=== PATIENT | male | born 1995 | race Native Hawaiian/Other Pacific Islander ===

== ENCOUNTER 2021-02-28 03:32 | Emergency (ER) | payer OTHER ==
[~2021-02-28] VITALS: Ht 175.3 cm; Wt 114.8 kg
[~2021-02-28 03:32] MED LIST: CLONIDINE0.2 MG PO; DIVA250T2 PO; LATUDA20 MG OR
[2021-02-28 06:02] VITALS: BP 160/83; TEMP 97.8
== END 2021-02-28 06:02 | disposition home or self-care (01) ==
LOC: ED 03:32
DX: J06.9 Acute upper respiratory infection, unspecified (principal); J04.0 Acute laryngitis; Z20.822 Contact with and (suspected) exposure to COVID-19
CPT/HCPCS: 87502; 87635; 99283; U0003

== ENCOUNTER 2022-10-01 12:37 | Emergency (ER) | payer OTHER ==
[~2022-10-01] VITALS: Ht 175.3 cm; Wt 113.4 kg
[2022-10-01 12:41] VITALS: TEMP 97.2
[2022-10-01 12:59] LABS: PLATELET COUNT 323 K/uL (142-355)
[2022-10-01 13:15] LABS: PARTIAL THROMBOPLASTIN TIME 28.3 SECONDS (23.9-36.7)
[2022-10-01 13:19] LABS: POTASSIUM 4.1 mmol/L (3.6-5.2)
[2022-10-01 13:51] VITALS: BP 130/75
== END 2022-10-01 13:51 | disposition home or self-care (01) ==
LOC: ED 12:37
PROVIDERS: Family Medicine
DX: R07.89 Other chest pain (principal); D72.829 Elevated white blood cell count, unspecified
CPT/HCPCS: 80053; 82550; 84484; 85027; 85610; 85730; 93005; 99284